=== PATIENT | male | born 1965 | race American Indian/Alaskan Native ===

== ENCOUNTER 2019-10-30 16:07 | Emergency (ER) | payer OTHER ==
--- NOTE | 2019-10-30 16:49 | Event Note ---
ED Screening Note Date of service: 10/30/19 Time: 16:48 ED Screening Note: Pt complains of sore throat x 3 days denies fever +painful swallowing This initial assessment/diagnostic orders/clinical plan/treatment(s) is/are subject to change based on patients health status, clinical progression and re- assessment by fellow clinical providers in the ED. Further treatment and workup at subsequent clinical providers discretion. Patient/guardian urged not to elope from the ED as their condition may be serious if not clinically assessed and managed. Initial orders include: rapid strep
--- NOTE | 2019-10-30 20:32 | Emergency Department Report ---
- General Chief Complaint: Upper Respiratory Infection Stated Complaint: SORE THROAT DIZZY Time Seen by Provider: 10/30/19 16:45 Source: patient Mode of arrival: Ambulatory Limitations: No Limitations - History of Present Illness Initial Comments: Patient is a 54-year-old -[place] male with no past medical history who presents to the ED with complaint of acute onset persistent severe sore throat with dysphagia for the last 2 days. Patient also complains of mild dry cough and lightheadedness. Patient denies fever, chills, nasal and sinus congestion, dizziness, chest pain, shortness of breath, abdominal pain, headache, diarrhea, nausea and vomiting or hearing loss. MD Complaint: cough, sore throat, rhinorrhea, nasal congestion, sinus pain -: Sudden Severity: severe Severity scale (0 -10): 7 Quality: sharp, aching Consistency: constant Improves With: nothing Worsens With: nothing Context: sick contacts Associated Symptoms: denies other symptoms, myalgias, headache, rhinorrhea, nasal congestion, sore throat, cough. denies: fever, chills, chest pain, shortness of breath, nausea, vomiting, diarrhea, rash, right sweats, weight loss Treatments Prior to Arrival: none - Related Data Previous Rx's Medication Instructions Recorded Last Taken Type Azithromycin [Zithromax Z-BRANDAN] 250 mg PO DAILY #6 tablet 10/30/19 Unknown Rx Ibuprofen [Motrin] 800 mg PO Q8HR PRN #24 tablet 10/30/19 Unknown Rx Lidocaine Viscous 2% 10 ml PO Q6H PRN #120 ml 10/30/19 Unknown Rx Allergies Allergy/AdvReac Type Severity Reaction Status Date / Time No Known Allergies Allergy Verified 10/30/19 16:12 ED Review of Systems ROS: Stated complaint: SORE THROAT DIZZY Other details as noted in HPI Constitutional: denies: chills, fever Eyes: denies: eye pain, eye discharge, vision change ENT: throat pain. denies: ear pain Respiratory: cough. denies: shortness of breath, wheezing Cardiovascular: denies: chest pain, palpitations Endocrine: no symptoms reported Gastrointestinal: denies: abdominal pain, nausea, diarrhea Genitourinary: denies: urgency, dysuria Musculoskeletal: denies: back pain, joint swelling, arthralgia Skin: denies: rash, lesions Neurological: denies: headache, weakness, paresthesias Psychiatric: denies: anxiety, depression Hematological/Lymphatic: denies: easy bleeding, easy bruising ED Past Medical Hx - Past Medical History Previous Medical History?: No - Surgical History Past Surgical History?: No - Social History Smoking Status: Never Smoker Substance Use Type: None - Medications Home Medications: Home Medications Medication Instructions Recorded Confirmed Last Taken Type Azithromycin [Zithromax Z-BRANDAN] 250 mg PO DAILY #6 tablet 10/30/19 Unknown Rx Ibuprofen [Motrin] 800 mg PO Q8HR PRN #24 tablet 10/30/19 Unknown Rx Lidocaine Viscous 2% 10 ml PO Q6H PRN #120 ml 10/30/19 Unknown Rx ED Physical Exam - General Limitations: No Limitations General appearance: alert, in no apparent distress - Head Head exam: Present: atraumatic, normocephalic, normal inspection - Eye Eye exam: Present: normal appearance, PERRL, EOMI Pupils: Present: normal accommodation - ENT ENT exam: Present: mucous membranes moist, TM's normal bilaterally, normal external ear exam, other (Erythematous oropharynx and tonsils) - Neck Neck exam: Present: normal inspection, full ROM. Absent: tenderness, lymphadenopathy - Respiratory Respiratory exam: Present: normal lung sounds bilaterally. Absent: respiratory distress, wheezes, rales, rhonchi, chest wall tenderness, accessory muscle use, decreased breath sounds, prolonged expiratory - Cardiovascular Cardiovascular Exam: Present: regular rate, normal rhythm, normal heart sounds. Absent: systolic murmur, diastolic murmur, rubs, gallop - GI/Abdominal GI/Abdominal exam: Present: soft, normal bowel sounds. Absent: tenderness, guarding, rebound, hyperactive bowel sounds, hypoactive bowel sounds - Extremities Exam Extremities exam: Present: normal inspection, full ROM, normal capillary refill - Back Exam Back exam: Present: normal inspection, full ROM. Absent: tenderness, CVA tenderness (R), CVA tenderness (L), muscle spasm, paraspinal tenderness - Neurological Exam Neurological exam: Present: alert, oriented X3, CN II-XII intact, normal gait, reflexes normal - Psychiatric Psychiatric exam: Present: normal affect, normal mood - Skin Skin exam: Present: warm, dry, intact, normal color. Absent: rash ED Course Vital Signs 10/30/19 16:46 Temperature 98.2 F Pulse Rate 89 Respiratory 18 Rate Blood Pressure 133/89 O2 Sat by Pulse 95 Oximetry ED Medical Decision Making - Medical Decision Making This is a 54-year-old male who presented to the ED with acute onset persistent sore throat with dysphagia for the last 2 days. Patient also complained of lightheadedness intermittently. In the ED, patient is alert and oriented x3 and is not in any distress with normal vital signs. Rapid strep test was negative. Patient was empirically treated for streptococcal pharyngitis based on the symptoms and the fact that the rapid strep test is not sensitive enough. Patient was advised to take medications and follow-up with his primary care physician in 7 to 10 days for reevaluation or return to the ED immediately if symptoms get worse. - Differential Diagnosis Strep pharyngitis; Viral Pharyngitis; URI; Bronchitis; Influenza Critical care attestation.: If time is entered above; I have spent that time in minutes in the direct care of this critically ill patient, excluding procedure time. ED Disposition Clinical Impression: Acute pharyngitis Qualifiers: Pharyngitis/tonsillitis etiology: other specified organisms Qualified Code(s): J02.8 - Acute pharyngitis due to other specified organisms Disposition: DC-01 TO HOME OR SELFCARE Is pt being admited?: No Does the pt Need Aspirin: No Condition: Stable Instructions: Pharyngitis (ED), Tonsillitis (ED) Additional Instructions: Take medication with food, drink plenty of fluids and follow-up with your primary care physician in 7 to 10 days for reevaluation. Return to the ED immed iately if symptoms get worse. Prescriptions: Lidocaine Viscous 2% 10 ml PO Q6H PRN #120 ml PRN Reason: Pain , Severe (7-10) Ibuprofen [Motrin] 800 mg PO Q8HR PRN #24 tablet PRN Reason: Pain , Severe (7-10) Azithromycin [Zithromax Z-BRANDAN] 250 mg PO DAILY #6 tablet Referrals: NICOLAS NGUYEN MD [Staff Physician] - 3-5 Days Time of Disposition: 20:27 Print Language: SLOV[place]
[2019-10-30 20:38] VITALS: BP 134/75
== END 2019-10-30 20:35 | disposition home or self-care (01) ==
LOC: ED 16:07
DX: J02.9 Acute pharyngitis, unspecified (principal); R42 Dizziness and giddiness; Z79.899 Other long term (current) drug therapy
CPT/HCPCS: 87116; 87430

== ENCOUNTER 2021-03-07 13:27 | Emergency (ER) | payer OTHER ==
[2021-03-07] MEDS ORDERED: ROCURONIUM 50 MG/5 ML INJ IV ONE (13:33)
[2021-03-07] MEDS ORDERED: ETOMIDATE 20 MG/10 ML INJ IV ONE (13:33)
[2021-03-07] MEDS ORDERED: SODIUM CHLORIDE 0.9% 1000 ML 1,000 ML ONE (13:33)
[2021-03-07] MEDS ORDERED: LIP THERAPY VASELINE TP PRN (13:46)
[2021-03-07] MEDS ORDERED: MINERAL OIL/PETROLATUM, WHITE OPHTH OINT 3.5 GM OU PRN (13:46)
--- NOTE | 2021-03-07 13:46 | Emergency Department Report ---
HPI - General Time Seen by Provider: 03/07/21 13:40 - HPI HPI: This is a 55-year-old -Congolese male presents to the emergency department via EMS from home unresponsive and a code stroke was initiated. Patient's last known well time was yesterday night when the patient called out from work because he apparently was not feeling well. Some roommates and/or friends found the patient unresponsive just prior to presentation. EMS says that he had some response to painful stimuli in route. The patient arrives completely unresponsive, GCS of 3, with snoring respirations. EMS gave him Narcan in route without any change. The other people in the house say that this patient does not have any known past medical history or take any medications on a regular basis. Supposedly he is not a smoker or known to use any illicit drugs. The patient is a poor historian secondary to his current medical condition. He was in our emergency department 1 time previously for a sore throat and there is no past medical history listed at that time. ED Past Medical Hx - Social History Smoking Status: Never Smoker Substance Use Type: None - Medications Home Medications: Home Medications Medication Instructions Recorded Confirmed Last Taken Type Azithromycin [Zithromax Z-BRANDAN] 250 mg PO DAILY #6 tablet 10/30/19 Unknown Rx Ibuprofen [Motrin] 800 mg PO Q8HR PRN #24 tablet 10/30/19 Unknown Rx Lidocaine Viscous 2% 10 ml PO Q6H PRN #120 ml 10/30/19 Unknown Rx ED Review of Systems ROS: Stated complaint: CVA Other details as noted in HPI Comment: Unobtainable due to pts medical conditions Physical Exam - Physical Exam Physical Exam: GENERAL: The patient is ill-appearing and unresponsive. HENT: Normocephalic. Atraumatic. Patient has moist mucous membranes. EYES: Pupils equal reactive to light bilaterally. NECK: Supple. Trachea is midline. CHEST/LUNGS: Slightly coarse breath sounds. Patient has shallow, snoring respirations. HEART/CARDIOVASCULAR: Regular. There is no tachycardia. There is no murmur. ABDOMEN: Abdomen is soft, nontender. Patient has normal bowel sounds. Obese habitus. SKIN: Skin is warm and dry. NEURO: The patient is unresponsive to verbal or painful stimuli. GCS of 3. MUSCULOSKELETAL: There is no obvious deformity. ED Course - Consultations Consultation #1: 03/07/21 14:[address] angio results of a basilar artery thrombosis, I contacted [facility] for possible transfer. I was notified that there are no neuro ICU beds available. Attempting a transfer to [place]. 03/07/21 15:12 The patient has been accepted for transfer to [facility] by Dr. Amy SIDDIQUI Interpretation Ph: [phone] PCO2: 35 PO2: 84 Bicarbonate: 20.5 Interpretation: respiratory alkalosis, metabolic acidosis - Intubation Time Out Performed: Yes Sedative: Etomidate (20) Mg Given: 20 Paralytic: Rocuronium Mg Given: 150 Laryngoscope: other ([place] scope) Size: 4 ET Tube Size: 7.5 Tube Secured Depth (cm): 24 Tube Secured Location: lips Tube Placement Confirmation: visualized tube passing t, equal breath sounds bilat, confirmation by capnometr Patient Tolerated Procedure: well Intubation Complications: none ED Medical Decision Making - Lab Data Result diagrams: 03/07/21 13:44 03/07/21 13:44 Lab Results 03/07/21 03/07/21 03/07/21 Range/Units 13:39 13:44 13:44 WBC 6.8 (4.5-11.0) K/mm3 RBC 4.86 (3.65-5.03) M/mm3 Hgb 16.3 H (11.8-15.2) gm/dl Hct 46.9 H (35.5-45.6) % MCV 97 H (84-94) fl MCH 34 H (28-32) pg MCHC 35 H (32-34) % RDW 13.7 (13.2-15.2) % Plt Count 307 (140-440) K/mm3 Lymph % (Auto) 18.0 (13.4-35.0) % Shannon % (Auto) 6.5 (0.0-7.3) % Eos % (Auto) 0.1 (0.0-4.3) % Baso % (Auto) 0.8 (0.0-1.8) % Lymph # (Auto) 1.2 (1.2-5.4) K/mm3 Shannon # (Auto) 0.4 (0.0-0.8) K/mm3 Eos # (Auto) 0.0 (0.0-0.4) K/mm3 Baso # (Auto) 0.1 (0.0-0.1) K/mm3 Seg Neutrophils % 74.6 H (40.0-70.0) % Seg Neutrophils # 5.1 (1.8-7.7) K/mm3 PT 12.8 (12.2-14.9) Sec. INR 0.90 (0.87-1.13) APTT 24.1 L (24.2-36.6) Sec. Thrombin Time 16.7 (15.1-19.6) Sec. ABG pH (7.320-7.450) POC ABG pCO2 (32.0-48.0) mmHg POC ABG pO2 (83-108) mmHg POC ABG HCO3 ABG O2 Saturation (0-100) POC ABG Base Excess ABG Hemoglobin (12.0-17.5) ABG Oxyhemoglobin (94-98) ABG Methemoglobin (0.0-1.5) ABG Sodium (136.0-145.0) mmol/L ABG Potassium (3.40-4.50) mmol/L ABG Chloride (98-107) mmol/L ABG Glucose (65-95) mg/dL ABG Lactate (0.18-30.0) Carboxyhemoglobin (0.5-1.5) FiO2 % Sodium (137-145) mmol/L Potassium (3.6-5.0) mmol/L Chloride (98-107) mmol/L Carbon Dioxide (22-30) mmol/L Anion Gap mmol/L BUN (9-20) mg/dL Creatinine (0.8-1.3) mg/dL Estimated GFR ml/min BUN/Creatinine Ratio % Glucose (75-100) mg/dL POC Glucose 123 H (70-105) mg/dL Calcium (8.4-10.2) mg/dL Total Bilirubin (0.1-1.2) mg/dL AST (5-40) units/L ALT (7-56) units/L Alkaline Phosphatase (35-129) units/L Ammonia (25-60) umol/L Total Creatine Kinase (55-170) units/L CK-MB (CK-2) (0.0-4.0) ng/mL CK-MB (CK-2) Rel Index (0-4) Troponin T (0.00-0.029) ng/mL Total Protein (6.3-8.2) g/dL Albumin (3.9-5) g/dL Albumin/Globulin Ratio % Arterial Blood Glucose (65-95) mg/dL Urine Color (Yellow) Urine Turbidity (Clear) Urine pH (5.0-7.0) Ur Specific [place] (1.003-1.030) Urine Protein (Negative) mg/dL Urine Glucose (UA) (Negative) mg/dL Urine Ketones (Negative) mg/dL Urine Blood (Negative) Urine Nitrite (Negative) Urine Bilirubin (Negative) Urine Urobilinogen (<2.0) mg/dL Ur Leukocyte Esterase (Negative) Urine WBC (Auto) (0.0-6.0) /HPF Urine RBC (Auto) (0.0-6.0) /HPF Urine Mucus /HPF Urine Opiates Screen Urine Methadone Screen Ur Barbiturates Screen Ur Phencyclidine Scrn Ur Amphetamines Screen U Benzodiazepines Scrn Urine Cocaine Screen U Marijuana (THC) Screen Drugs of Abuse Note Plasma/Serum Alcohol (0-0.07) % Blood Type Antibody Screen 03/07/21 03/07/21 03/07/21 Range/Units 13:44 13:44 13:44 WBC (4.5-11.0) K/mm3 RBC (3.65-5.03) M/mm3 Hgb (11.8-15.2) gm/dl Hct (35.5-45.6) % MCV (84-94) fl MCH (28-32) pg MCHC (32-34) % RDW (13.2-15.2) % Plt Count (140-440) K/mm3 Lymph % (Auto) (13.4-35.0) % Shannon % (Auto) (0.0-7.3) % Eos % (Auto) (0.0-4.3) % Baso % (Auto) (0.0-1.8) % Lymph # (Auto) (1.2-5.4) K/mm3 Shannon # (Auto) (0.0-0.8) K/mm3 Eos # (Auto) (0.0-0.4) K/mm3 Baso # (Auto) (0.0-0.1) K/mm3 Seg Neutrophils % (40.0-70.0) % Seg Neutrophils # (1.8-7.7) K/mm3 PT (12.2-14.9) Sec. INR (0.87-1.13) APTT (24.2-36.6) Sec. Thrombin Time (15.1-19.6) Sec. ABG pH (7.320-7.450) POC ABG pCO2 (32.0-48.0) mmHg POC ABG pO2 (83-108) mmHg POC ABG HCO3 ABG O2 Saturation (0-100) POC ABG Base Excess ABG Hemoglobin (12.0-17.5) ABG Oxyhemoglobin (94-98) ABG Methemoglobin (0.0-1.5) ABG Sodium (136.0-145.0) mmol/L ABG Potassium (3.40-4.50) mmol/L ABG Chloride (98-107) mmol/L ABG Glucose (65-95) mg/dL ABG Lactate (0.18-30.0) Carboxyhemoglobin (0.5-1.5) FiO2 % Sodium 136 L (137-145) mmol/L Potassium 4.5 (3.6-5.0) mmol/L Chloride 100.5 (98-107) mmol/L Carbon Dioxide 23 (22-30) mmol/L Anion Gap 17 mmol/L BUN 18 (9-20) mg/dL Creatinine 1.3 (0.8-1.3) mg/dL Estimated GFR > 60 ml/min BUN/Creatinine Ratio 14 % Glucose 121 H (75-100) mg/dL POC Glucose (70-105) mg/dL Calcium 8.8 (8.4-10.2) mg/dL Total Bilirubin 0.40 (0.1-1.2) mg/dL AST 21 (5-40) units/L ALT 28 (7-56) units/L Alkaline Phosphatase 72 (35-129) units/L Ammonia (25-60) umol/L Total Creatine Kinase 460 H (55-170) units/L CK-MB (CK-2) 3.4 (0.0-4.0) ng/mL CK-MB (CK-2) Rel Index 0.7 (0-4) Troponin T < 0.010 (0.00-0.029) ng/mL Total Protein 7.4 (6.3-8.2) g/dL Albumin 4.2 (3.9-5) g/dL Albumin/Globulin Ratio 1.3 % Arterial Blood Glucose (65-95) mg/dL Urine Color (Yellow) Urine Turbidity (Clear) Urine pH (5.0-7.0) Ur Specific [place] (1.003-1.030) Urine Protein (Negative) mg/dL Urine Glucose (UA) (Negative) mg/dL Urine Ketones (Negative) mg/dL Urine Blood (Negative) Urine Nitrite (Negative) Urine Bilirubin (Negative) Urine Urobilinogen (<2.0) mg/dL Ur Leukocyte Esterase (Negative) Urine WBC (Auto) (0.0-6.0) /HPF Urine RBC (Auto) (0.0-6.0) /HPF Urine Mucus /HPF Urine Opiates Screen Urine Methadone Screen Ur Barbiturates Screen Ur Phencyclidine Scrn Ur Amphetamines Screen U Benzodiazepines Scrn Urine Cocaine Screen U Marijuana (THC) Screen Drugs of Abuse Note Plasma/Serum Alcohol < 0.01 (0-0.07) % Blood Type A POSITIVE Antibody Screen Negative 03/07/21 03/07/21 03/07/21 Range/Units 13:44 14:46 Unknown WBC (4.5-11.0) K/mm3 RBC (3.65-5.03) M/mm3 Hgb (11.8-15.2) gm/dl Hct (35.5-45.6) % MCV (84-94) fl MCH (28-32) pg MCHC (32-34) % RDW (13.2-15.2) % Plt Count (140-440) K/mm3 Lymph % (Auto) (13.4-35.0) % Shannon % (Auto) (0.0-7.3) % Eos % (Auto) (0.0-4.3) % Baso % (Auto) (0.0-1.8) % Lymph # (Auto) (1.2-5.4) K/mm3 Shannon # (Auto) (0.0-0.8) K/mm3 Eos # (Auto) (0.0-0.4) K/mm3 Baso # (Auto) (0.0-0.1) K/mm3 Seg Neutrophils % (40.0-70.0) % Seg Neutrophils # (1.8-7.7) K/mm3 PT (12.2-14.9) Sec. INR (0.87-1.13) APTT (24.2-36.6) Sec. Thrombin Time (15.1-19.6) Sec. ABG pH 7.379 (7.320-7.450) POC ABG pCO2 35.5 (32.0-48.0) mmHg POC ABG pO2 84.8 (83-108) mmHg POC ABG HCO3 20.5 ABG O2 Saturation 96.5 (0-100) POC ABG Base Excess -3.8 ABG Hemoglobin 16.9 (12.0-17.5) ABG Oxyhemoglobin 95.8 (94-98) ABG Methemoglobin 0.3 (0.0-1.5) ABG Sodium 134.9 L (136.0-145.0) mmol/L ABG Potassium 4.4 (3.40-4.50) mmol/L ABG Chloride 100.0 (98-107) mmol/L ABG Glucose 147 H (65-95) mg/dL ABG Lactate 2.34 (0.18-30.0) Carboxyhemoglobin 0.4 L (0.5-1.5) FiO2 % 100.0 Sodium (137-145) mmol/L Potassium (3.6-5.0) mmol/L Chloride (98-107) mmol/L Carbon Dioxide (22-30) mmol/L Anion Gap mmol/L BUN (9-20) mg/dL Creatinine (0.8-1.3) mg/dL Estimated GFR ml/min BUN/Creatinine Ratio % Glucose (75-100) mg/dL POC Glucose (70-105) mg/dL Calcium (8.4-10.2) mg/dL Total Bilirubin (0.1-1.2) mg/dL AST (5-40) units/L ALT (7-56) units/L Alkaline Phosphatase (35-129) units/L Ammonia 14.0 L (25-60) umol/L Total Creatine Kinase (55-170) units/L CK-MB (CK-2) (0.0-4.0) ng/mL CK-MB (CK-2) Rel Index (0-4) Troponin T (0.00-0.029) ng/mL Total Protein (6.3-8.2) g/dL Albumin (3.9-5) g/dL Albumin/Globulin Ratio % Arterial Blood Glucose 147 H (65-95) mg/dL Urine Color Yellow (Yellow) Urine Turbidity Clear (Clear) Urine pH 5.0 (5.0-7.0) Ur Specific [place] 1.026 (1.003-1.030) Urine Protein <15 mg/dl (Negative) mg/dL Urine Glucose (UA) Neg (Negative) mg/dL Urine Ketones Neg (Negative) mg/dL Urine Blood Neg (Negative) Urine Nitrite Neg (Negative) Urine Bilirubin Neg (Negative) Urine Urobilinogen 2.0 (<2.0) mg/dL Ur Leukocyte Esterase Neg (Negative) Urine WBC (Auto) 2.0 (0.0-6.0) /HPF Urine RBC (Auto) 2.0 (0.0-6.0) /HPF Urine Mucus Few /HPF Urine Opiates Screen Urine Methadone Screen Ur Barbiturates Screen Ur Phencyclidine Scrn Ur Amphetamines Screen U Benzodiazepines Scrn Urine Cocaine Screen U Marijuana (THC) Screen Drugs of Abuse Note Plasma/Serum Alcohol (0-0.07) % Blood Type Antibody Screen 03/07/21 Range/Units Unknown WBC (4.5-11.0) K/mm3 RBC (3.65-5.03) M/mm3 Hgb (11.8-15.2) gm/dl Hct (35.5-45.6) % MCV (84-94) fl MCH (28-32) pg MCHC (32-34) % RDW (13.2-15.2) % Plt Count (140-440) K/mm3 Lymph % (Auto) (13.4-35.0) % Shannon % (Auto) (0.0-7.3) % Eos % (Auto) (0.0-4.3) % Baso % (Auto) (0.0-1.8) % Lymph # (Auto) (1.2-5.4) K/mm3 Shannon # (Auto) (0.0-0.8) K/mm3 Eos # (Auto) (0.0-0.4) K/mm3 Baso # (Auto) (0.0-0.1) K/mm3 Seg Neutrophils % (40.0-70.0) % Seg Neutrophils # (1.8-7.7) K/mm3 PT (12.2-14.9) Sec. INR (0.87-1.13) APTT (24.2-36.6) Sec. Thrombin Time (15.1-19.6) Sec. ABG pH (7.320-7.450) POC ABG pCO2 (32.0-48.0) mmHg POC ABG pO2 (83-108) mmHg POC ABG HCO3 ABG O2 Saturation (0-100) POC ABG Base Excess ABG Hemoglobin (12.0-17.5) ABG Oxyhemoglobin (94-98) ABG Methemoglobin (0.0-1.5) ABG Sodium (136.0-145.0) mmol/L ABG Potassium (3.40-4.50) mmol/L ABG Chloride (98-107) mmol/L ABG Glucose (65-95) mg/dL ABG Lactate (0.18-30.0) Carboxyhemoglobin (0.5-1.5) FiO2 % Sodium (137-145) mmol/L Potassium (3.6-5.0) mmol/L Chloride (98-107) mmol/L Carbon Dioxide (22-30) mmol/L Anion Gap mmol/L BUN (9-20) mg/dL Creatinine (0.8-1.3) mg/dL Estimated GFR ml/min BUN/Creatinine Ratio % Glucose (75-100) mg/dL POC Glucose (70-105) mg/dL Calcium (8.4-10.2) mg/dL Total Bilirubin (0.1-1.2) mg/dL AST (5-40) units/L ALT (7-56) units/L Alkaline Phosphatase (35-129) units/L Ammonia (25-60) umol/L Total Creatine Kinase (55-170) units/L CK-MB (CK-2) (0.0-4.0) ng/mL CK-MB (CK-2) Rel Index (0-4) Troponin T (0.00-0.029) ng/mL Total Protein (6.3-8.2) g/dL Albumin (3.9-5) g/dL Albumin/Globulin Ratio % Arterial Blood Glucose (65-95) mg/dL Urine Color (Yellow) Urine Turbidity (Clear) Urine pH (5.0-7.0) Ur Specific [place] (1.003-1.030) Urine Protein (Negative) mg/dL Urine Glucose (UA) (Negative) mg/dL Urine Ketones (Negative) mg/dL Urine Blood (Negative) Urine Nitrite (Negative) Urine Bilirubin (Negative) Urine Urobilinogen (<2.0) mg/dL Ur Leukocyte Esterase (Negative) Urine WBC (Auto) (0.0-6.0) /HPF Urine RBC (Auto) (0.0-6.0) /HPF Urine Mucus /HPF Urine Opiates Screen Negative Urine Methadone Screen Negative Ur Barbiturates Screen Negative Ur Phencyclidine Scrn Negative Ur Amphetamines Screen Negative U Benzodiazepines Scrn Negative Urine Cocaine Screen Negative U Marijuana (THC) Screen Negative Drugs of Abuse Note Disclamer Plasma/Serum Alcohol (0-0.07) % Blood Type Antibody Screen - Radiology Data Radiology results: report reviewed, image reviewed interpreted by me: Chest x-ray shows some pulmonary vascular congestion. Endotracheal tube is in appropriate position. No widened mediastinum. No pneumothorax. CT head CT head/brain wo con INDICATION / CLINICAL INFORMATION: 55 years Male; CODE STROKE CALL [phone]. Unresponsive TECHNIQUE: Routine CT head without contrast. All CT scans at this location are performed using CT dose reduction for ALARA by means of automated exposure control. COMPARISON: None. FINDINGS: BRAIN / INTRACRANIAL CONTENTS: Small area of high attenuation is seen in the mid to distal basilar artery. Findings may be related to skull base artifact, although thrombosis cannot entirely be excluded. There is a similar type appearance in the distal left vertebral artery. Otherwise, no acute hemorrhage, mass effect, midline shift, hydrocephalus, or acute, large territorial infarct. No signs of significant atrophy or chronic infarct. Minimal, nonspecific white matter disease suggested. CRANIOCERVICAL JUNCTION: No significant abnormality. ORBITS: No significant abnormality of visualized orbits. SINUSES / MASTOIDS: There is partial opacification of the ethmoids. Secretions are seen in the nasopharynx. Patient is intubated. ADDITIONAL FINDINGS: None. IMPRESSION: 1. Basilar artery thrombosis cannot entirely be excluded. CTA of the head and neck would be helpful for further evaluation. CT angio head INDICATION / CLINICAL INFORMATION: 55 years Male; stroke sx. Unresponsive TECHNIQUE: Thin cut axial images obtained through the head during IV bolus contrast administration. Sagittal, coronal, and 3 plane MIP reconstructions performed by the technologist. NASCET type criteria used evaluate stenoses. Automated exposure control utilized for radiation reduction purposes. COMPARISON: None available. FINDINGS: INTERNAL CAROTID ARTERIES: No significant narrowing appreciated. VERTEBROBASILAR SYSTEM: 1.5 cm length segment of thrombosis is seen in the basilar artery. DISTAL BRANCHES: Distal branches of the anterior, middle, and posterior cerebral arteries are fairly symmetric in appearance and number. Multiple areas of mild, focal narrowing are seen in the anterior cerebral arteries. Surprisingly, the posterior cerebral arteries are patent, most likely fed via the posterior communicating artery on the left. Both superior cerebellar arteries are visualized as well. ANEURYSM: None identified. ADDITIONAL FINDINGS: Remainder of the surrounding soft tissues are grossly normal. IMPRESSION: 1. Basilar artery thrombosis identified as described above. Pontine tissue appears to be at most risk given the degree of collateral flow present. 2. Areas of mild narrowing seen in the anterior cerebral arteries. CT angio neck INDICATION / CLINICAL INFORMATION: 55 years Male; 100 ML OMNI 350 . Unresponsive TECHNIQUE: Thin cut axial images obtained through the head during IV bolus contrast administration. Sagittal, coronal, and 3 plane MIP reconstructions performed by the technologist. NASCET type criteria used evaluate stenoses. All CT scans at this location are performed using CT dose reduction for ALARA by means of automated exposure control. Study limited by patient body habitus. Also, the patient is intubated and NG tube is present. Nasal cannulas in place. COMPARISON: None available. FINDINGS: ARCH: Normal aortic arch branching suggested. The proximal innominate artery is difficult to visualize because of artifact. CAROTID ARTERIES: The visualized common and inte rnal carotid arteries are widely patent. Surprisingly little atherosclerotic disease present. VERTEBRAL ARTERIES: Slight right dominant vertebral system seen. Small portion of the proximal left vertebral artery is difficult to visualize which may be related to artifact or focal narrowing. Right vertebral artery is widely patent. ADDITIONAL FINDINGS: Some component of atelectasis suggested in the upper lungs. IMPRESSION: 1. Narrowing in the proximal left vertebral artery cannot entirely be excluded, the findings may be artifact related to patient's body habitus. 2. Otherwise, no significant narrowing appreciated. - Medical Decision Making This patient presented to the emergency department unresponsive with a last known well time sometime last night. A code stroke was initiated. As soon as the patient arrived it was apparent that he needed to be intubated for protection of airway. The patient has a GCS of 3 and shallow snoring respirations. The patient was intubated as per the procedure section. He was then sent straight for a CT scan of the head without contrast, followed by angiography of the head and neck. Initially I was called by the radiologist saying that the CT scan of the head without contrast was negative, but then he called back saying that he might have some concern for there being something in the basilar artery. He called back shortly afterwards after reviewing the CT angiography studies and it showed basilar artery thrombosis. I attempted to transfer the patient to [place] but they did not have bed availability. I then was successful in getting the patient accepted for transfer to [facility]. Patient's labs were mostly unremarkable including CBC, metabolic panel, ammonia level, troponin, normal thyroid function, urinalysis, UDS and blood alcohol level. Vital signs have been reassuring throughout his ED course while on mechanical ventilation. We attempted 2 different [employer] companies. One of them was almost an hour before arrival to our emergency department and the other was not capable of tra nsferring this patient due to his weight. [facility] was able to arrived within 10 minutes and transfer the patient ALS to [place]. The patient's family was brought back to see the patient in room #20 and updated regarding the basilar artery thrombosis/CVA findings and the transfer to [facility]. Critical Care Time: Yes Critical care time in (mins) excluding proc time.: 75 Critical care attestation.: If time is entered above; I have spent that time in minutes in the direct care of this critically ill patient, excluding procedure time. Critical care time was spent on this patient in doing his initial evaluation, multiple reevaluations, ordering and interpretation of labs and imaging, discussion with the telemedicine neurologist, discussion with [facility] transfer center, discussion with the neuro b2b sales professional at [place], multiple discussions with the patient's family. This does not include the time spent doing the separately billable procedure of endotracheal intubation. Critical Care Time: 75 minutes ED Disposition Clinical Impression: Basilar artery thrombosis CVA (cerebral vascular accident) Qualifiers: CVA mechanism: thrombosis Precerebral and cerebral artery: basilar artery Qualified Code(s): I63.02 - Cerebral infarction due to thrombosis of basilar artery Acute respiratory failure Qualifiers: Respiratory failure complication: unspecified whether with hypoxia or hypercapnia Qualified Code(s): J96.00 - Acute respiratory failure, unspecified whether with hypoxia or hypercapnia Disposition: DC/TX-02 SHRT-TRM GEN HOSP IP Is pt being admited?: No Condition: Critical Time of Disposition: 16:44
[2021-03-07 13:55] LABS: Basophils # (Auto) 0.1 K/mm3 (0.0-0.1); Basophils % (Auto) 0.8 % (0.0-1.8); Eosinophils % (Auto) 0.1 % (0.0-4.3); Hematocrit 46.9 % (35.5-45.6); Hemoglobin 16.3 gm/dl (11.8-15.2); Lymphocytes # (Auto) 1.2 K/mm3 (1.2-5.4); Mean Corpuscular HGB Conc 35 % (32-34); Mean Corpuscular Volume 97 fl (84-94); Monocytes # (Auto) 0.4 K/mm3 (0.0-0.8); Monocytes % (Auto) 6.5 % (0.0-7.3); Platelet Count 307 K/mm3 (140-440); Red Blood Count 4.86 M/mm3 (3.65-5.03); Red Cell Distribution Width 13.7 % (13.2-15.2)
[2021-03-07] MEDS ORDERED: MIDAZOLAM 100 MG in SODIUM CHLORIDE 0.9% 80 ML IV SCH (14:00)
[2021-03-07 14:14] LABS: Creatine Kinase MB 3.4 ng/mL (0.0-4.0)
[2021-03-07 14:16] LABS: Alanine Aminotransferase 28 units/L (7-56); Albumin 4.2 g/dL (3.9-5); BUN/Creatinine Ratio 14; Blood Urea Nitrogen 18 mg/dL (9-20); Calcium 8.8 mg/dL (8.4-10.2); Hemolysis Index 14
[2021-03-07 14:25] LABS: INR 0.9 (0.87-1.13); Partial Thromboplastin Time 24.1 Sec. (24.2-36.6); Thrombin Time 16.7 Sec. (15.1-19.6)
[2021-03-07 14:31] LABS: Bilirubin,Urine NEG (Negative); Blood,Urine NEG (Negative); Color,Urine Yellow (Yellow); Mucus,Urine FEW /HPF
[2021-03-07 14:32] LABS: Protein,Urine <15 mg/dL mg/dL (Negative)
--- NOTE | 2021-03-07 14:32 | Cat Scan Report ---
CT head CT head/brain wo con INDICATION / CLINICAL INFORMATION: 55 years Male; CODE STROKE CALL [phone]. Unresponsive TECHNIQUE: Routine CT head without contrast. All CT scans at this location are performed using CT dos e reduction for ALARA by means of automated exposure control. COMPARISON: None. FINDINGS: BRAIN / INTRACRANIAL CONTENTS: Small area of high attenuation is seen in the mid to distal basilar ar yasir. Findings may be related to skull base artifact, although thrombosis cannot entirely be excluded . There is a similar type appearance in the distal left vertebral artery. Otherwise, no acute hemorrhage, mass effect, midline shift, hydrocephalus, or acute, large territori al infarct. No signs of significant atrophy or chronic infarct. Minimal, nonspecific white matter dis ease suggested. CRANIOCERVICAL JUNCTION: No significant abnormality. ORBITS: No significant abnormality of visualized orbits. SINUSES / MASTOIDS: There is partial opacification of the ethmoids. Secretions are seen in the nasoph arynx. Patient is intubated. ADDITIONAL FINDINGS: None. IMPRESSION: 1. Basilar artery thrombosis cannot entirely be excluded. CTA of the head and neck would be helpful f or further evaluation. CODE STROKE: Exam Completed (LINOTYPE OPERATOR/CDT): 03/07/2021 1:17 PM central standard time Exam Reviewed (LINOTYPE OPERATOR/CDT): 1:20 PM Time of Communication (LINOTYPE OPERATOR/CDT): 1:25 PM Licensed Practitioner Receiving Report: Dr. Hoover Signer Name: Inocencio Bolaños MD, III Signed: 03/07/2021 2:27 PM Workstation Name: [employer]
[2021-03-07 14:38] LABS: Amphetamine Screen,Urine Negative; Benzodiazepines Screen,Urine Negative; Cannabinoid Screen,Urine Negative; Cocaine Screen,Urine Negative; Methadone Screen,Urine Negative; Opiate Screen,Urine Negative
--- NOTE | 2021-03-07 14:44 | Cat Scan Report ---
. CT angio head INDICATION / CLINICAL INFORMATION: 55 years Male; stroke sx. Unresponsive TECHNIQUE: Thin cut axial images obtained through the head during IV bolus contrast administration. S agittal, coronal, and 3 plane MIP reconstructions performed by the technologist. NASCET type criteria used evaluate stenoses. Automated exposure control utilized for radiation reduction purposes. COMPARISON: None available. FINDINGS: INTERNAL CAROTID ARTERIES: No significant narrowing appreciated. VERTEBROBASILAR SYSTEM: 1.5 cm length segment of thrombosis is seen in the basilar artery. DISTAL BRANCHES: Distal branches of the anterior, middle, and posterior cerebral arteries are fairly symmetric in appearance and number. Multiple areas of mild, focal narrowing are seen in the anterior cerebral arteries. Surprisingly, the posterior cerebral arteries are patent, most likely fed via the posterior communica ting artery on the left. Both superior cerebellar arteries are visualized as well. ANEURYSM: None identified. ADDITIONAL FINDINGS: Remainder of the surrounding soft tissues are grossly normal. IMPRESSION: 1. Basilar artery thrombosis identified as described above. Pontine tissue appears to be at most risk given the degree of collateral flow present. 2. Areas of mild narrowing seen in the anterior cerebral arteries. CRITICAL RESULT: Exam Completed (NEMATOLOGIST/CDT): 03/07/2021 1:25 PM Eastern time Exam Reviewed (NEMATOLOGIST/CDT): 1:33 PM Time of Communication (NEMATOLOGIST/CDT): 1:37 PM Licensed Practitioner Receiving Report: Dr. Hoover Information confirmed: Yes. Signer Name: Inocencio Bolaños MD, III Signed: 03/07/2021 2:40 PM Workstation Name: [employer]
[2021-03-07] MEDS ORDERED: ASPIRIN 300 MG RECT SUPP PR ONE (14:49)
--- NOTE | 2021-03-07 14:49 | Cat Scan Report ---
CT angio neck INDICATION / CLINICAL INFORMATION: 55 years Male; 100 ML OMNI 350 . Unresponsive TECHNIQUE: Thin cut axial images obtained through the head during IV bolus contrast administration. S agittal, coronal, and 3 plane MIP reconstructions performed by the technologist. NASCET type criteria used evaluate stenoses. All CT scans at this location are performed using CT dose reduction for ALAR A by means of automated exposure control. Study limited by patient body habitus. Also, the patient is intubated and NG tube is present. Nasal cannulas in place. COMPARISON: None available. FINDINGS: ARCH: Normal aortic arch branching suggested. The proximal innominate artery is difficult to visualiz e because of artifact. CAROTID ARTERIES: The visualized common and internal carotid arteries are widely patent. Surprisingly little atherosclerotic disease present. VERTEBRAL ARTERIES: Slight right dominant vertebral system seen. Small portion of the proximal left v ertebral artery is difficult to visualize which may be related to artifact or focal narrowing. Right vertebral artery is widely patent. ADDITIONAL FINDINGS: Some component of atelectasis suggested in the upper lungs. IMPRESSION: 1. Narrowing in the proximal left vertebral artery cannot entirely be excluded, the findings may be a rtifact related to patient's body habitus. 2. Otherwise, no significant narrowing appreciated. Signer Name: Inocencio Bolaños MD, III Signed: 03/07/2021 2:44 PM Workstation Name: [id number]
--- NOTE | 2021-03-07 14:56 | Consultation ---
Medications and Allergies Allergies Allergy/AdvReac Type Severity Reaction Status Date / Time No Known Allergies Allergy Verified 10/30/19 16:12 Home Medications Medication Instructions Recorded Confirmed Last Taken Type Azithromycin [Zithromax Z-BRANDAN] 250 mg PO DAILY #6 tablet 10/30/19 Unknown Rx Ibuprofen [Motrin] 800 mg PO Q8HR PRN #24 tablet 10/30/19 Unknown Rx Lidocaine Viscous 2% 10 ml PO Q6H PRN #120 ml 10/30/19 Unknown Rx Active Meds: Active Medications Famotidine (Famotidine 20 Mg/2 Ml Inj) 20 mg IV BID CA Hydrophilic Ointment (Lip Therapy Vaseline) 1 applic TP Q2HR PRN PRN Reason: Dry Lips Midazolam HCl 100 mg/ Sodium (Chloride) 100 mls @ 2 mls/hr IV TITR CA; Protocol Multi-Ingred Cream/Lotion/Oil/Oint (Mineral Oil/Petrolatum, White Ophth Oint 3.5 Gm) 1 applic OU Q4HR PRN PRN Reason: Dry Eye(s) Senna/Docusate Sodium (Sennosides/Docusate Sodium 8.6/50 Mg Tab) 1 tab FEEDTUBE BID CA Physical Examination - Vital Signs Vital Signs: Vital Signs Pulse BP Pulse Ox 84 141/67 99 03/07/21 14:32 03/07/21 14:32 03/07/21 14:32 Results - Laboratory Findings CBC and BMP: 03/07/21 13:44 03/07/21 13:44 Abnormal Lab Findings: Abnormal Labs 03/07/21 03/07/21 03/07/21 13:39 13:44 13:44 Hgb 16.3 H Hct 46.9 H MCV 97 H MCH 34 H MCHC 35 H Seg Neutrophils % 74.6 H APTT 24.1 L Sodium Glucose POC Glucose 123 H Ammonia Total Creatine Kinase 03/07/21 03/07/21 13:44 13:44 Hgb Hct MCV MCH MCHC Seg Neutrophils % APTT Sodium 136 L Glucose 121 H POC Glucose Ammonia 14.0 L Total Creatine Kinase 460 H Assessment and Plan [facility] Consult Note # Demographics Consult Type: Acute Stroke Level 2 (4.5-24 hrs) Patient Location: Emergency Room First Name: Woody Last Name: Cj Date of : 1965 Age: 55 Gender: Male Time of Initial Page (Eastern Time): 03/07/2021, 13:43 Time of Return Call (Eastern Time): 03/07/2021, 13:44 # HPI History: 55 yo man, did not show up to work this am. Friend states he last saw him well last night. Unsure of time. Pt did c/o blurred vision. EMS arrived to [facility]. Pt unresponsive with snoring resp. Not moving left side. GCS 3, intubated on ED. 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 # Plan Thrombolytic/Intervention: IA Intervention Thrombolytic Exclusion (< 3 hour window): time of onset unclear Target Blood Pressure: SBP < 220 Labs: hemoglobin A1c lipid panel Imaging: (urgency: routine): MRI Brain without contrast Diagnostic Test: echo with bubble study Therapy/Evaluation: NPO until swallow evaluation DVT Prophylaxis: SCD chemical DVT prophylaxis Other: LDL < 70 permissive hypertension telemetry monitoring I have discussed my recommendations with the referring provider Additional Recommendations: Transfer for interventional treatment Disposition: transfer to [place] capable facility # Logistics Telemedicine: phone only
[2021-03-07] MEDS ORDERED: MIDAZOLAM 5 MG/5 ML INJ MDV IV NR (15:00)
--- NOTE | 2021-03-07 15:03 | XRay Report ---
XR chest 1V ap INDICATION / CLINICAL INFORMATION: ETT placement. COMPARISON: None available. FINDINGS: SUPPORT DEVICES: Endotracheal tube tip projects in the midtrachea. Enteric catheter extends below the diaphragm, out of the [id number]. HEART /PULMONARY VASCULATURE: Heart is enlarged with mild pulmonary vasculature congestion. LUNGS / PLEURA: Mild interstitial opacities noted within the bilateral perihilar and basilar regions. No airspace consolidation or effusion. No pneumothorax. IMPRESSION: 1. Satisfactory position of endotracheal tube. Enteric catheter extends below the diaphragm, out of t he [id number]. 2. Findings most consistent with mild volume overload/CHF with interstitial edema. Signer Name: Alistair Dumas MD Signed: 03/07/2021 2:59 PM Workstation Name: [id number]
[2021-03-07] MEDS ORDERED: MIDAZOLAM 5 MG/5 ML INJ MDV IV ONE (15:38)
[2021-03-07 15:45] VITALS: BP 146/68
[2021-03-07] MEDS ORDERED: FAMOTIDINE 20 MG/2 ML INJ IV SCH (22:00)
[2021-03-07] MEDS ORDERED: SENNOSIDES/DOCUSATE SODIUM 8.6/50 MG TAB FEEDTUBE SCH (22:00)
--- NOTE | 2021-03-08 10:36 | Electrocardiograph Report ---
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
== END 2021-03-07 16:07 | disposition short-term general hospital (02) ==
LOC: ED 13:27
DX: I63.02 Cerebral infarction due to thrombosis of basilar artery (principal); J96.00 Acute respiratory failure, unspecified whether with hypoxia or hypercapnia; Z79.899 Other long term (current) drug therapy
CPT/HCPCS: 31500; 36415; 51701; 70450; 70496; 70498; 71045; 80053; 80307; 81001; 82140; 82550; 82553; 82805; 82962; 84484; 85025; 85610; 85670; 85730; 86850; 86900; 86901; 87070; 87205; 93005; 99291; 99292; J2250; J7030; Q9967; 80320; 94002; 96365; 96366; 96375; G0480